=== PATIENT | female | born 1935 | race Caucasian/White ===

== ENCOUNTER 2020-07-29 13:14 | Emergency (ER) | payer OTHER ==
[~2020-07-29] VITALS: Ht 157.5 cm; Wt 45.4 kg
[2020-07-29] MEDS ORDERED: MIRALAX119 GM PO ×2 (13:28→13:29)
[2020-07-29] MEDS ORDERED: ARICEPT10 M1 PO (13:28)
[2020-07-29] MEDS ORDERED: VITAMIN D350 MC4 PO (13:30)
[2020-07-29 14:16] LABS: ABSOLUTE NEUTROPHILS 6.3 thou/uL (1.4-8.2); BASOPHILS 0.3 % (0.0-2.0); EOSINOPHILS 0.3 % (0.0-3.0); HEMATOCRIT 41.6 % (37.0-47.0); HEMOGLOBIN 14.2 gm/dL (12.0-15.0); LYMPHOCYTES 6.3 % (24.0-44.0); MCHC 34.1 g/dL (28.0-37.0); MCV 93.9 fL (80.0-100.0); MONOCYTES 7.3 % (1.0-8.0); PLATELET COUNT 188 thou/uL (150-400); POLYS 85.8 % (36.0-66.0); RBC 4.43 mil/uL (4.20-5.00); RDW 12.8 % (10.5-14.5); WBC 7.3 thou/uL (4.0-11.0)
[2020-07-29 14:20] LABS: CALCIUM 9.6 mg/dL (8.5-10.1); CREATININE 1.1 mg/dL (0.6-1.0); POTASSIUM 3.7 mmol/L (3.5-5.1)
[2020-07-29 14:25] LABS: ALBUMIN 4.2 g/dL (3.4-5.0); TOTAL BILIRUBIN 1.1 mg/dL (0.2-1.0); TOTAL PROTEIN 7.4 g/dL (6.4-8.2)
[2020-07-29 15:21] LABS: URINE BLOOD 3+ (Negative); URINE CLARITY CLOUDY; URINE COLOR YELLOW; URINE GLUCOSE-RANDOM* NEGATIVE (Negative); URINE KETONES 3+ (Negative); URINE LEUKOCYTES-REFLEX 1+ (Negative); URINE NITRITE-REFLEX NEGATIVE (Negative); URINE PROTEIN (DIPSTICK) TRACE (Negative); URINE SPECIFIC GRAVITY >= 1.030 (1.005-1.035)
[2020-07-29 15:22] LABS: ICTOTEST (BILI CONFIRMATORY) Negative (Negative); URINE BILIRUBIN NEGATIVE (Negative)
[2020-07-29 15:24] LABS: URINE REDUCING SUBSTANCE NEGATIVE
[2020-07-29 15:31] LABS: AMORPHOUS URATES Few /LPF (None Seen); CASTS None Seen /LPF (None Seen); SQUAMOUS 4-10 Moderate /LPF (0-3); URINE WBC-REFLEX 6-15 Few /HPF (0-5)
[2020-07-29] MEDS ORDERED: KEFLEX500 M1 PO (16:13)
[2020-07-29 16:42] VITALS: BP 100/47
== END 2020-07-29 16:32 | disposition home or self-care (01) ==
LOC: ER 13:14
PROVIDERS: Physician Assistant
DX: N39.0 Urinary tract infection, site not specified (principal); Z79.899 Other long term (current) drug therapy; Z20.828 Contact with and (suspected) exposure to other viral communicable diseases